=== PATIENT | male | born 1940 | race Caucasian/White ===

== ENCOUNTER 2017-01-08 07:00 | Day surgery (SDC) | payer MEDICARE, OTHER ==
[~2017-01-08 07:00] MED LIST: ACETAMINOPHEN650 M2 PO; ALLOPURINOL300 M1 PO; CITALOPRAM HBR20 M1 PO; COLACE100 M1 PO; CYMBALTA30 M1 PO; LACTINEX CHEWA1 EAC1 PO; METOPROLOL SUCC50 M1 PO; NEURONTIN100 M1 PO; PANTOPRAZOLE SO40 M3 PO; TRAMADOL HCL50 M2 PO; ZOCOR40 M1 PO
[2017-01-08 07:36] LABS: PROTHROMBIN TIME 11.4 SECONDS (9.0-13.6)
== END 2017-01-08 11:04 ==
LOC: RADSP 07:00 → SHSB 07:05
PROVIDERS: Radiology Diagnostic Radiology
PROC: 0JH60XZ Insertion of Tunneled Vascular Access Device into Chest Subcutaneous Tissue and Fascia, Open Approach (ICD-10-PCS; principal; 2017-01-08)
PROC: 05HN33Z Insertion of Infusion Device into Left Internal Jugular Vein, Percutaneous Approach (ICD-10-PCS; 2017-01-08)
PROC: B544ZZA Ultrasonography of Left Jugular Veins, Guidance (ICD-10-PCS; 2017-01-08)
DX: C34.90 Malignant neoplasm of unspecified part of unspecified bronchus or lung (principal); C85.10 Unspecified B-cell lymphoma, unspecified site; D47.2 Monoclonal gammopathy; R53.83 Other fatigue; F32.9 Major depressive disorder, single episode, unspecified; G89.29 Other chronic pain; M25.559 Pain in unspecified hip; R19.7 Diarrhea, unspecified; R49.0 Dysphonia; M19.90 Unspecified osteoarthritis, unspecified site; D69.59 Other secondary thrombocytopenia; D70.1 Agranulocytosis secondary to cancer chemotherapy; Z79.899 Other long term (current) drug therapy; Z87.891 Personal history of nicotine dependence; Z98.890 Other specified postprocedural states
CPT/HCPCS: C1788; J0690; J2250; J3010; J7030